=== PATIENT | male | born 1990 | race Caucasian/White ===

== ENCOUNTER → 2018-05-15 | Day surgery (SDC) | payer OTHER ==
[~2018-05-15] VITALS: Ht 177.8 cm; Wt 152.2 kg
[~2018-05-15] MED LIST: FLUT16H NASAL; LIDOCAINE/PF 2% 5 ML VIAL IM ONE; LORA10TA7 PO; OMEG-12 PO; PROPOFOL 1% 20 ML VIAL IVP ONE; SODIUM CHLORIDE 0.9% 1,000 ML IV ONE; VITAD1000 PO; [UNRECOGNIZED DRUG - CODE] OU
== END | disposition home or self-care (01) ==
LOC: SURGERY 12:24
PROVIDERS: ATTEND Student in an Organized Health Care Education/Training Program
DX: K62.5 Hemorrhage of anus and rectum (principal); K57.30 Diverticulosis of large intestine without perforation or abscess without bleeding; K64.8 Other hemorrhoids; K29.50 Unspecified chronic gastritis without bleeding; K75.81 Nonalcoholic steatohepatitis (NASH); Z88.8 Allergy status to other drugs, medicaments and biological substances; Z90.89 Acquired absence of other organs; Z98.890 Other specified postprocedural states; Z79.899 Other long term (current) drug therapy
CPT/HCPCS: 43239; 45380; 88305; 88312; C1769; J2704; J3490; J7030